=== PATIENT | female | born 2000 | race Caucasian/White ===

== ENCOUNTER 2023-10-15 23:55 | Emergency (ER) | payer OTHER, SELFPAY ==
[2023-10-15 23:56] VITALS: BP 146/89; PULSE 89; RESP 16; TEMP 36.1; O2SAT 99; BMI 24.3
--- NOTE | 2023-10-16 00:14 | ED.VIS.DENTA ---
HPI History of Present Illness Chief Complaint: Dental Informant: patient Narrative Narrative: Dental pain for months, she has a root canal scheduled for 1.5 weeks away, but over the last couple days the pain is gradually been worsening. She denies any swelling, discharge, bleeding, fevers, or other new symptoms. PFSH PFSH Medical History no medical history no medical history Home Medications clindamycin HCl 300 mg capsule (Cleocin HCl) 300 mg PO Q6H #40 CAPSULES 10/16/23 [Rx Last Taken Unknown] hydrocodone-acetaminophen 5-325mg 5mg-325mg 1 tab PO Q6H PRN PRN Pain 3 days #10 TABLETS 10/16/23 [Rx Last Taken Unknown] Allergy/AdvReac Type Severity Reaction Status Date / Time amoxicillin Allergy Rash Verified 10/15/23 23:56 Social History Smoking Status: Never smoker ROS ROS ED Constitutional Constitutional ED: Denies chills or fever(s) Eyes Eyes: Denies change in vision or double vision ENT ENT ED: Reports dental pain; Denies sinus pain or throat swelling Cardiovascular Cardiovascular: Denies chest pain or palpitations Respiratory/Chest Respiratory/Chest: Denies cough or dyspnea Integumentary Denies abscess or rash Neurologic Neurologic: Denies headache(s), paresthesias or weakness EXAM Physical Exam Const Vital Signs: 10/15/23 23:56 Temperature 97 F L Temperature Source Temporal Pulse Rate 89 Respiratory Rate 16 Blood Pressure 146/89 H Blood Pressure Mean 108 Pulse Ox 99 Positive well nourished and well developed General Appearance ED: well developed and NAD HEENT HEENT Narrative: Tooth #2 appears to have some central decay, there is some tenderness, the gingiva is normal, there is no trismus, there is no abscess, and there is no external facial swelling/asymmetry. There is no discharge or bleeding from the tooth. The same appearance is at tooth #16, but it is less tender. Face and Sinus: sinuses nontender Throat: posterior oropharynx normal Eyes PERRL and EOMs intact bilaterally Neck no lymphadenopathy and supple Resp normal respiratory effort Neuro oriented x3 and CN's II-XII intact bilaterally Sensorium / Orientation: alert Gait (Neuro): normal gait Psych mental status grossly normal and thought process normal Skin no rashes or lesions noted and no wounds MDM MDM MDM Narrative Medical decision making narrative: Patient was given a [place], she is constantly drinking cold water because it really helps to keep it submerged. She is uncomfortable. I placed Cav[place] temporary filling into both affected teeth and it helped her pain significantly. I do not think she needs antibiotics right now, I do not think she has an infection but I am giving her a prescription for clindamycin (amoxicillin allergic) just in case she develops swelling prior to her scheduled root canal with appropriate instructions on when to fill it and take it. Also given a prescription for some [place]. Discharge Plan Triage Chief Complaint: Dental ED Provider: Prem Garces Dx/Rx/DC Orders Clinical Impression: Pain due to dental caries Instructions: ED Dental Cavity Prescriptions: New hydrocodone-acetaminophen [hydrocodone-acetaminophen] 5-325 mg tablet 1 tab PO Q6H PRN PRN (Reason: Pain) 3 Days Qty: 10 0RF clindamycin HCl [Cleocin HCl] 300 mg capsule 300 mg PO Q6H Qty: 40 0RF Primary Care Provider: Care Physician,No Primary Referrals: Dentist,Your [STAFF PHYSICIAN] - As soon as possible Activity Restrictions/Additional Instructions: If you develop any focal swelling along with increased pain, fill and take the antibiotic as prescribed until finished. You may add ibuprofen to the prescription pain medication if needed. Disposition Disposition: Home, Self Care
[2023-10-16] MEDS: Tetracaine/Benzocaine/Butamben 1 APPLIC TOPICAL (00:23)
[2023-10-16] MEDS: HYDROcodone Bitartrate/Apap 5/325 Tablet PO (00:24)
== END 2023-10-16 01:23 | disposition home or self-care (01) ==
PROVIDERS: Emergency Provider Emergency Medicine; Visit Provider Emergency Medicine
DX: K02.9 Dental caries, unspecified (principal)
CPT/HCPCS: 64999; 99283